=== PATIENT | male | born 1945 | race Caucasian/White ===

== ENCOUNTER 2023-12-08 19:20 | Emergency (ER) | payer OTHER, SELFPAY ==
[2023-12-08 19:24] VITALS: BP 119/71
[2023-12-08 19:27] LABS: Glucose - Point of Care 72 mg/dl (70-99)
[2023-12-08 19:35] VITALS: BMI 26.1
[2023-12-08 19:58] LABS: % Basophils 0.7 % (0-2); % Eosinophils 4.8 % (0-6); % Immature Granulocytes 0.3 % (0-0.5); % Lymphocytes 9.9 % (20.5-51.1); % Monocytes 6.1 % (1.7-9.3); % Neutrophils 78.2 % (42.2-75.2); Absolute Basophils 0.1 10^3/uL (0-0.2); Absolute Eosinophils 0.3 10^3/uL (0-0.7); Absolute Lymphocytes 0.7 10^3/uL (1.2-3.4); Absolute Monocytes 0.4 10^3/uL (0.1-0.6); Absolute Neutrophils 5.4 10^3/uL (1.4-6.5); Hematocrit 34.6 % (39.0-52.0); Hemoglobin 11.6 g/dL (13.0-18.0); Mean Corp Hgb Conc. 33.5 g/dL (33.0-37.0); Mean Corpuscular Hgb 33.5 pg (27.0-31.0); Mean Platelet Volume 9.3 fL (7.4-10.4); Nucleated Red Blood Cells % 0 % (-); Platelet Count 173 10^3/uL (130-400); Red Blood Cell Count 3.46 10^6/uL (4.70-6.10); Red Cell Dist. Width 13.2 % (11.5-14.5); White Blood Cell Count 6.9 10^3/uL (4.8-10.8)
[2023-12-08 20:13] LABS: ALT (SGPT) 19 U/L (0-50); AST (SGOT) 26 U/L (17-59); Albumin 3.9 g/dl (3.5-5.0); Alkaline Phosphatase 80 U/L (38-126); Blood Urea Nitrogen 29 mg/dl (9-20); Calcium 8.8 mg/dl (8.4-10.2); Carbon Dioxide 19 mmol/L (22-30); Chloride 109 mmol/L (98-107); Estimated Creatinine Clearance 54 ml/min; Glucose 85 mg/dl (70-99); Potassium 3.6 mmol/L (3.5-5.1); Sodium 138 mmol/L (135-145); Total Bilirubin 0.4 mg/dl (0.2-1.3); Total Protein 6.8 g/dl (6.3-8.2); eGFR > 60.00
--- NOTE | 2023-12-08 20:27 | ED.GENMED ---
History of Present Illness
General
Chief Complaint: Weakness
Source: patient
Time Seen by Provider: 12/08/23 20:02
Travel History
Have you had any contact with someone who has COVID-19?: No
Do you have any symptoms of coronavirus? Fever > 100 degrees, chills, cough, shortness of breath, sore throat, loss of taste or smell, muscle aches, or headache?: No
History of Present Illness
History of Present Illness:
77-year-old male presents to the emergency room for evaluation of weakness. Patient was doing some cooking in the kitchen and while moving from 1 room to another he began to feel dizzy. He either slipped or lost his balance and fell. He did not
hit his head. He was unable to get up. 911 was called. Patient denies feeling dizzy now. He has really no complaints at this time. Patient thought perhaps his glucose had gotten low. However his glucose was normal but Accu-Chek here. No
nausea or vomiting. Patient denies chest pain, shortness of breath.
Past History
Past History
ED Past Medical History: CAD, Cancer (Breast Right), HTN, Hypercholesterolemia, NIDDM, [place] and Other (Pneumothorax after 5 rib fractures)
ED Past Surgical History: Appendectomy, Cardiac (stent) and Other (Mastectomy right )
Social History
Tobacco: Smoker (Pipe)
Alcohol: Daily (wine 1 glass)
Drug: None
Personal:
Living: with family
Employment: Retired
Family History
Family History: Other (Noncontributory)
Phy Exam
Physical Exam
Physical Exam:
General: Awake, Alert, Oriented X3. No acute distress.
Vitals: unremarkable
Head: Atraumatic
Eyes: Pupils equal, EOMI
Throat: Airway intact, no exudates
Neck: Trachea midline
Lungs: Clear and equal b/l
Heart: Regular rate, no murmurs
Abd: Soft, Nontender, No pulsatile mass
Neuro: Nonfocal
Skin: Warm, dry, no rash
Extremities: pulses equal b/l, no edema
Course
Orders/Labs/Results
Orders:
Orders
12/08/23 19:42
EKG [Electrocardiogram (*1)] Urgent
Reason for Study: Other
Other Reason for Exam: generalizeed weakness
EKG- Treatment ONCE
12/08/23 19:50
Complete Blood Count/With Diff Urgent
Comprehensive Metabolic Panel Urgent
12/08/23 20:25
0.9% Sodium Chloride 500 ml [Nss] 500 ml IV BOLUS
Abnormal Lab Results
12/08/23
19:50
RBC 3.46 L 10^6/uL
(4.70-6.10)
Hgb 11.6 L g/dL
(13.0-18.0)
Hct 34.6 L %
(39.0-52.0)
MCV 100.0 H fL
(80.0-94.0)
MCH 33.5 H pg
(27.0-31.0)
Absolute Lymphs (auto) 0.7 L 10^3/uL
(1.2-3.4)
Neutrophils % 78.2 H %
(42.2-75.2)
Lymphocytes % 9.9 L %
(20.5-51.1)
Chloride 109 H mmol/L
(98-107)
Carbon Dioxide 19 L mmol/L
(22-30)
BUN 29 H mg/dl
(9-20)
12/08/23 19:50
12/08/23 19:50
Vital Signs
Initial and Last Documented VS:
Initial Vital Signs
Temp Pulse Resp BP Pulse Ox
97.7 F 84 19 119/71 99
12/08/23 19:24 12/08/23 19:24 12/08/23 19:24 12/08/23 19:24 12/08/23 19:24
Last Documented Vital Signs
Temp Pulse Resp BP Pulse Ox
97.7 F 84 19 119/71 99
12/08/23 19:24 12/08/23 19:24 12/08/23 19:24 12/08/23 19:24 12/08/23 19:35
MDM/Problems Addressed
Differential Diagnosis Includes:
syncope, near-syncope, contusion, dehydration, anemia
MDM/Problems Addressed:
Patient presents after falling. Patient states he felt weak and perhaps dizzy prior to the fall. No loss of consciousness. No chest pain or shortness breath. Workup reveals normal hemoglobin, normal white blood count. BUN 29 creatinine 1.2
suggesting mild prerenal azotemia. Patient feels better after 500 bolus of normal saline. Patient stable for discharge home.
*Pulse Oximetry
Patient hypoxic: no
*EKG
Interpreted by ED Provider?: Yes
Interpretation: normal
Heart Rate: 76
Rate: normal
Rhythm: sinus
Grover: normal axis
Interval: normal interval
QRS Pattern: normal QRS
Ischemia: no ischemia
*[place] Interpretation
Rate: normal
Interpretation: normal
Rhythm: sinus
*Critical Care Note
Total Time (30-74mins, 75-104mins- exclusive of procedures): Not Applicable
ED Attending Note
-
Portions of this chart may have been created with voice recognition software.� Occasional wrong word or��sound alike� substitutions may have occurred due to the inherent limitations of voice recognition software.
Discharge Plan
Departure
Patient Disposition: Home (Routine Discharge)
Date of Disposition: 12/08/23
Time of Disposition: 22:00
Patient with high blood pressure during this ER visit?: No
Condition: Good
Discharge Problem:
Acute dehydration
Instructions: Dehydration, Adult ED
Prescriptions:
No Action
lisinopril 20 MG tablet
20 mg PO HS
metformin 1,000 MG tablet
1,000 mg PO BID Qty: 30 0RF
Rx Instructions:
Resume regular dose of Metfomin on 01/11/13
carvedilol 6.25 MG tablet
6.25 mg PO BID Qty: 60 11RF
simvastatin 40 mg Tablet
40 mg PO HS
tamsulosin [Flomax] 0.4 mg capsule
0.4 mg PO HS Qty: 7 0RF
Referrals:
No Hardy DO [Family Provider] -
Interventions
Interventions:
*Risk Screen - Suicide Last Done: 12/08/23 19:24
*General Assessment Last Done: 12/08/23 19:24
*Neglect/Abuse Screening Last Done: 12/08/23 19:24
ED- Fall Risk Assessment Last Done: 12/08/23 19:35
*ED COVID-19 Vaccine History Last Done: 12/08/23 19:35
*Nursing Disposition Last Done: 12/08/23 22:10
ED- Cardiac Assessment Last Done: 12/08/23 19:35
ED- Neurological Assessment Last Done: 12/08/23 19:35
ED- Pulmonary Assessment Last Done: 12/08/23 19:35
Discharge Date and Time
Discharge Date/Time: 12/08/23 22:10
Print Language: DANISH
[2023-12-08] MEDS: NSS 500 IV (20:34)
== END 2023-12-08 22:10 | disposition home or self-care (01) ==
LOC: EMR 19:20
PROVIDERS: EMERGENCY PHYSICIAN Emergency Medicine; FAMILY PHYSICIAN Family Medicine
DX: E86.0 Dehydration (principal); W01.0XXA Fall on same level from slipping, tripping and stumbling without subsequent striking against object, initial encounter; F17.290 Nicotine dependence, other tobacco product, uncomplicated
CPT/HCPCS: 99284; 96360; 80053; 82962; 85025; 93005

== ENCOUNTER → 2024-12-01 12:48 | Outpatient (REF) | payer OTHER, SELFPAY ==
[2024-12-01 15:45] LABS: ALT (SGPT) 22 U/L (0-50); AST (SGOT) 23 U/L (17-59); Albumin 3.9 g/dl (3.5-5.0); Alkaline Phosphatase 78 U/L (38-126); Blood Urea Nitrogen 21 mg/dl (9-20); Carbon Dioxide 31 mmol/L (22-30); Chloride 104 mmol/L (98-107); Glucose 167 mg/dl (70-99); Potassium 4.1 mmol/L (3.5-5.1); Sodium 141 mmol/L (135-145); Total Bilirubin 0.8 mg/dl (0.2-1.3); Total Protein 6.7 g/dl (6.3-8.2); eGFR > 60.00
[2024-12-01 15:54] LABS: NT-proBNP 271 pg/ml
[2024-12-01 17:14] LABS: % Basophils 1.1 % (0-2); % Immature Granulocytes 0.2 % (0-0.5); % Lymphocytes 12.7 % (20.5-51.1); % Monocytes 8.4 % (1.7-9.3); % Neutrophils 69.6 % (42.2-75.2); Absolute Basophils 0.1 10^3/uL (0-0.2); Absolute Eosinophils 0.4 10^3/uL (0-0.7); Absolute Lymphocytes 0.7 10^3/uL (1.2-3.4); Absolute Monocytes 0.5 10^3/uL (0.1-0.6); Absolute Neutrophils 3.7 10^3/uL (1.4-6.5); Hematocrit 39.8 % (39.0-52.0); Hemoglobin 13.4 g/dL (13.0-18.0); Mean Corp Hgb Conc. 33.7 g/dL (33.0-37.0); Mean Corpuscular Hgb 35.4 pg (27.0-31.0); Mean Platelet Volume 10.8 fL (7.4-10.4); Nucleated Red Blood Cells % 0 % (-); Platelet Count 195 10^3/uL (130-400); Red Blood Cell Count 3.79 10^6/uL (4.70-6.10); Red Cell Dist. Width 12.4 % (11.5-14.5); White Blood Cell Count 5.4 10^3/uL (4.8-10.8)
== END ==
LOC: HWRCS 12:48
PROVIDERS: ATTENDING PHYSICIAN Family Medicine; REFERRING PHYSICIAN Nurse Practitioner Primary Care
DX: I25.10 Atherosclerotic heart disease of native coronary artery without angina pectoris (principal); J90 Pleural effusion, not elsewhere classified; E11.59 Type 2 diabetes mellitus with other circulatory complications; R11.11 Vomiting without nausea; R60.0 Localized edema
CPT/HCPCS: 36415; 71046; 80053; 83880; 85025; 93306

== ENCOUNTER 2025-02-19 04:25 | Inpatient (IN) | payer OTHER, SELFPAY ==
[2025-02-19] VITALS (14 sets, daily range): BP systolic 111–167; BP diastolic 57–92; BMI 26.9; BMI 26.3
[2025-02-19] MEDS: ZOFRAN 4 MG IV (02:20)
[2025-02-19] MEDS: MORPHINE SULFATE 4 MG IV (02:21)
[2025-02-19 02:27] LABS: % Eosinophils 9.5 % (0-6); % Immature Granulocytes 0.2 % (0-0.5); % Lymphocytes 16.6 % (20.5-51.1); % Monocytes 8.3 % (1.7-9.3); % Neutrophils 64.4 % (42.2-75.2); Absolute Basophils 0.1 10^3/uL (0-0.2); Absolute Eosinophils 0.6 10^3/uL (0-0.7); Absolute Monocytes 0.5 10^3/uL (0.1-0.6); Absolute Neutrophils 3.8 10^3/uL (1.4-6.5); Hematocrit 35.4 % (39.0-52.0); Hemoglobin 11.8 g/dL (13.0-18.0); Mean Corp Hgb Conc. 33.3 g/dL (33.0-37.0); Mean Corpuscular Hgb 35.5 pg (27.0-31.0); Mean Corpuscular Volume 106.6 fL (80.0-94.0); Nucleated Red Blood Cells % 0 % (-); Platelet Count 152 10^3/uL (130-400); Red Blood Cell Count 3.32 10^6/uL (4.70-6.10); Red Cell Dist. Width 13.3 % (11.5-14.5); White Blood Cell Count 5.9 10^3/uL (4.8-10.8)
[2025-02-19 02:44] LABS: INR 0.96; PT 13.1 Sec (11.4-14.6)
[2025-02-19 02:45] LABS: APTT 23.9 Sec (23.4-35.0)
[2025-02-19 02:57] LABS: ALT (SGPT) 25 U/L (0-50); AST (SGOT) 27 U/L (17-59); Alkaline Phosphatase 79 U/L (38-126); Blood Urea Nitrogen 45 mg/dl (9-20); Calcium 8.8 mg/dl (8.4-10.2); Carbon Dioxide 28 mmol/L (22-30); Chloride 106 mmol/L (98-107); Estimated Creatinine Clearance 45 ml/min; Glucose 223 mg/dl (70-99); Potassium 4.2 mmol/L (3.5-5.1); Sodium 142 mmol/L (135-145); Total Bilirubin 0.6 mg/dl (0.2-1.3); Total Protein 6.6 g/dl (6.3-8.2); eGFR 50.81
--- NOTE | 2025-02-19 03:28 | ED.GENMED ---
History of Present Illness
General
Chief Complaint: Fall
Source: patient
Exam Limitations: none
Time Seen by Provider: 02/19/25 02:13
History of Present Illness
History of Present Illness:
Note:
CHIEF COMPLAINT(S)
Left hip pain and suspected fracture after a fall.
HISTORY OF PRESENT ILLNESS
The patient is an 79-year-old male who presents with left hip pain following a fall. He reports that he fell after tripping on the floor near a mini fridge in his living room. The patients suggested to EMS that his leg is broken. He denies
head trauma or loss of consciousness at the time of fall. He also denies recent intake of alcoholic beverages prior to the fall. His last known blood pressure reading was 176/99 mmHg.
The patient indicates he has been experiencing stomach discomfort and has been unable to eat for the past three days. He mentions visiting a doctor for stomach issues and was prescribed medication for it. More recently, he had resumed eating.
- Nursing notes reviewed and vital signs reviewed.
- The patient exhibits tenderness in the left hip region. Upon inspection, the left limb appears shortened and externally rotated, suggestive of a possible fracture.
- No pain is noted when moving the toes, indicating they are likely not injured.
- Ankle examination reveals tenderness on the right side.
PLAN
- Order an X-ray to evaluate the suspected left hip fracture.
- Administer analgesics to manage pain.
- Discuss with orthopedic consultation following imaging results.
DIFFERENTIAL DIAGNOSIS
The Differential Diagnosis includes, in no particular order and is not limited to:
- Hip fracture
- Hip dislocation
- Contusion
- Lumbar spine injury
- Pelvic fracture
- Soft tissue injury
- Muscle strain
- Osteoarthritis exacerbation
- Peripheral neuropathy
- Vascular compromise
Past History
Past History
ED Past Medical History: CAD, Cancer (Breast Right), HTN, Hypercholesterolemia, NIDDM, [place] and Other (Pneumothorax after 5 rib fractures)
ED Past Surgical History: Appendectomy, Cardiac (stent) and Other (Mastectomy right )
Social History
Tobacco: Smoker (Pipe)
Alcohol: Daily (wine 1 glass)
Drug: None
Personal:
Living: with family
Employment: Retired
Family History
Family History: Other (Noncontributory)
Phy Exam
General Physical Exam
General Presentation: moderate distress
General age: appears stated age
General Skin: warm and dry
General Habitus: normal and elderly
General Mental: alert
General Hydration: appears well hydrated
ENT Exam
ENT Exam: EOMI, pharynx normal, neck supple and normocephalic
Eye Exam
Eye Exam: PERRL, cornea clear and conjunctiva normal
Cardiovascular Exam
Cardiovascular Exam: regular rate/rhythm, no edema, no murmur and normal peripheral pulses
Pulmonary Exam
Pulmonary Exam: lungs clear, no respiratory distress, no rales, no crackles, no rhonchi, no stridor, no wheezing and no cough
Gastrointestinal Exam
Gastrointestinal Exam: normal bowel sounds, non tender, soft, no organomegaly, no pulsatile mass and non distended
Neurological Exam
Neurological Exam: alert, oriented x3, no motor deficits and speech normal
Musculoskeletal Exam
Musculoskeletal Exam: joint swelling, neuro vasc intact and other (Left hip tenderness to palpation)
Skin Exam
Skin Exam: normal color, warm/dry, no rash and no petechia
Psychiatric Exam
Psychiatric Exam: normal mood/affect
Course
Orders/Labs/Results
Orders:
Orders
02/19/25 02:13
Urinalysis Reflex To Culture Urgent
CR Hip - LT w/wo Pel 2-3 Vw* Urgent
Comment:
Reason For Exam: fall with hip deformity
Include a pelvis x-ray?: Yes
02/19/25 02:17
Complete Blood Count/With Diff Urgent
Comprehensive Metabolic Panel Urgent
PTT Urgent
Prothrombin Time Urgent
02/19/25 02:20
Morphine Sulfate 4 mg .ROUTE .STK-MED ONE
Ondansetron Injectable [Zofran] 4 mg .ROUTE .STK-MED ONE
Ondansetron Injectable [Zofran] 4 mg IV NOW STA
02/19/25 02:21
Morphine Sulfate 4 mg IV NOW STA
02/19/25 Breakfast
NPO
Allow oral meds: Yes
Allow clear liquids: Sips of Clears
NPO with Ice Chips: Yes
Abnormal Lab Results
02/19/25
02:17
RBC 3.32 L 10^6/uL
(4.70-6.10)
Hgb 11.8 L g/dL
(13.0-18.0)
Hct 35.4 L %
(39.0-52.0)
MCV 106.6 H fL
(80.0-94.0)
MCH 35.5 H pg
(27.0-31.0)
Absolute Lymphs (auto) 1.0 L 10^3/uL
(1.2-3.4)
Lymphocytes % 16.6 L %
(20.5-51.1)
Eosinophils % 9.5 H %
(0-6)
BUN 45 H mg/dl
(9-20)
Creatinine 1.4 H mg/dL
(0.7-1.3)
Glucose 223 H mg/dl
(70-99)
02/19/25 02:17
02/19/25 02:17
Vital Signs
Initial and Last Documented VS:
Initial Vital Signs
Temp Pulse Resp BP Pulse Ox
97.8 F 77 18 167/92 94
02/19/25 02:05 02/19/25 02:05 02/19/25 02:05 02/19/25 02:05 02/19/25 02:05
Last Documented Vital Signs
Temp Pulse Resp BP Pulse Ox
97.8 F 78 15 147/87 94
02/19/25 02:05 02/19/25 03:15 02/19/25 03:15 02/19/25 03:12 02/19/25 03:30
*Pulse Oximetry
SaO2: 94
Oxygen Mode of Delivery: Room air
*Critical Care Note
Total Time (30-74mins, 75-104mins- exclusive of procedures): Not Applicable
Update Note
Update Note:
DISPOSITION
Patient to be admitted to the hospitalist service.
ASSESSMENT
Proximal femur fracture, non-displaced.
EMERGENCY TREATMENTS ADMINISTERED
Analgesics administered for pain control.
MANAGEMENT OF THE PATIENTS CARE WAS DISCUSSED WITH
Orthopedic consultation to follow imaging results.
PLAN
Admit the patient for further management, consult ortho for fracture evaluation and management.
INDEPENDENT REVIEW OF LABS AND INTERPRETATION OF TESTS
- My independent interpretation of the X-ray is a proximal femur fracture, non-displaced.
MEDICATION RECONCILIATION
Analgesics were administered in the emergency department for pain management.
MEDICAL DECISION MAKING
1. Number & Complexity of Problems
2. Data Reviewed: X-ray was ordered, reviewed, and interpreted for determining the non-displaced proximal femur fracture.
3. Risk: Consideration of admission was made due to the complexity and risk associated with the proximal femur fracture. Inpatient management is appropriate.
PATHOLOGIES TO CONSIDER
- Hip fracture
- Vascular compromise due to fracture complicating pre-existing conditions.
Orthopedic surgery notified via [place] text
ED Attending Note
-
Portions of this chart may have been created with voice recognition software.� Occasional wrong word or��sound alike� substitutions may have occurred due to the inherent limitations of voice recognition software.
Discharge Plan
Departure
Patient Disposition: Admit
Date of Disposition: 02/19/25
Time of Disposition: 03:46
Admit to: Telemetry
Presentation/result/management discussed w/ accepting MD/DO: Hospitalist
Discharge Problem:
Closed fracture of left hip
Prescriptions:
No Action
lisinopril 20 MG tablet
20 mg PO HS
metformin 1,000 MG tablet
1,000 mg PO BID Qty: 30 0RF
Rx Instructions:
Resume regular dose of Metfomin on 01/11/13
carvedilol 6.25 MG tablet
6.25 mg PO BID Qty: 60 11RF
simvastatin 40 mg Tablet
40 mg PO HS
tamsulosin [Flomax] 0.4 mg capsule
0.4 mg PO HS Qty: 7 0RF
Referrals:
No Hardy DO [Family Provider, Family Practice]
Interventions
Interventions:
*Risk Screen - Suicide Last Done: 02/19/25 02:10
*General Assessment Last Done: 02/19/25 02:10
*Neglect/Abuse Screening Last Done: 02/19/25 02:10
*ED- Fall Risk Assessment Last Done: 02/19/25 02:10
*ED COVID-19 Vaccine History Last Done: 02/19/25 02:10
ED-Musculoskeletal Assessment Last Done: 02/19/25 02:15
ED- Neurological Assessment Last Done: 02/19/25 02:15
ED-Skin Assessment Last Done: 02/19/25 02:15
Discharge Date and Time
Print Language: MOSOTHO
--- NOTE | 2025-02-19 03:53 | HPS.HSE ---
Family Physician
-
Family Physician: No Hardy
Chief Complaint
-
Mechanical fall
History of Present Illness
This is a 79-year-old male with past medical history of CAD status post stenting, hypertension, hyperlipidemia, BPH, [id number] diabetes s who presents to the emergency department following a mechanical fall at home and found to have a
left femoral fracture.
Patient apparently was walking in the middle of the night when he tripped and fell on his left side. He denied hitting his head. He is not on any blood thinners and denies taking any aspirin or NSAIDs currently. He reported having significant
pain and was immediately was unable to ambulate due to the pain. Spouse was at his bedside and called EMS and patient was brought to the emergency department.
In the emergency department the patient was afebrile, blood pressure was 150/80 with a pulse of 78 and satting 94% on room air.
CBC was unremarkable.
Electrolytes were normal and BUN/creatinine were slightly elevated at 45 and 1.4 with a glucose of 223. His INR was normal at 0.96. LFTs were normal.
X-ray of the hip shows a minimally displaced left proximal femur fracture
Medical History
Past Medical History
Past Medical History: Reports CAD (CAD status post 1 stent 10 years ago), Cancer (Breast cancer status post resection), HTN, NIDDM and Other (BPH)
Past Surgical History: Reports Appendectomy, Orthopedic (Right shoulder surgical repair with pins status post removal) and Other (Breast resection (left))
Social History
Tobacco: Non-smoker
Alcohol: Daily
Drug: None
Personal:
Living: With Family
Employment: Retired
Family History
Family History: Not pertinent
Allergies / Home Medications
Allergies reflects when Allergies were last updated in [facility].
Home Medications with original date entered in [facility]
Allergy/Medication List:
Allergies
Allergy/AdvReac Type Severity Reaction Status Date / Time
fluticasone (From Flonase) Allergy FACIAL Verified 03/19/23 19:37
SWELLING
losartan Allergy Unknown Verified 03/19/23 19:37
lovastatin Allergy Unknown Verified 03/19/23 19:37
salmeterol (From Advair Allergy SEE BELOW Verified 03/19/23 19:37
Diskus)
Home Medications
lisinopril 20 mg tablet 20 mg PO HS 12/10/12
simvastatin 40 mg tablet 40 mg PO HS 03/12/22
tamsulosin 0.4 mg capsule (Flomax) 0.4 mg PO HS Urinary issue #7 caps 03/20/23
Finasteride 5 mg tablet, 5 mg p.o. daily
Glipizide 5 mg tablet, 5 mg p.o. daily
Review of Systems
-
Constitutional: Reports No Symptoms
EENT: Reports No Symptoms
Respiratory: Reports No Symptoms
Cardiac: Reports No Symptoms
Abdomen/GI: Reports No Symptoms
: Reports No Symptoms
Musculoskeletal: Reports Joint Pain
Skin: Reports No Symptoms
Neurological: Reports No Symptoms
Endocrine: Reports No Symptoms
Hematologic/Lymphatic: Reports No Symptoms
Psych: Reports No Symptoms
Physical Exam
Vital Signs
Vital Signs
Temp Pulse Resp BP Pulse Ox
97.8 F 78 15 147/87 94
02/19/25 02:05 02/19/25 03:15 02/19/25 03:15 02/19/25 03:12 02/19/25 03:30
Physical Exam
General: Well Developed, Well Nourished and No Apparent Distress
HEENT: NormoCephalic, Moist mucous membranes and Atraumatic
Respiratory: Clear
Cardiac: S1/S2 and Regular Rhythm; No Murmur or Rub
GI: Soft, Non Tender, Non Distended and Normal Bowel Sounds; No Organomegaly
Rectal: Deferred by Provider
Musculoskeletal: No Clubbing, No Cyanosis, No Edema and Other (Reduced range of motion of the left hip secondary to pain, no limb length asymmetry)
Skin: No Rash
Neuro: Nonfocal/grossly intact
Psych: Calm
Laboratory Results
-
02/19/25 02:17
02/19/25 02:17
Laboratory Results
PT 13.1 Sec (11.4-14.6) 02/19/25 02:17
INR 0.96 02/19/25 02:17
APTT 23.9 Sec (23.4-35.0) 02/19/25 02:17
Total Bilirubin 0.6 mg/dl (0.2-1.3) 02/19/25 02:17
AST 27 U/L (17-59) 02/19/25 02:17
ALT 25 U/L (0-50) 02/19/25 02:17
Alkaline Phosphatase 79 U/L (38-126) 02/19/25 02:17
Data Reviewed
-
Diagnostic Radiology: Image Personally Visualized and interpreted
Lab Data: Labs Reviewed by me
Old Records: Reviewed
Impression/Plan
-
IMPRESSION:
79-year-old with history of known insulin-dependent diabetes, hypertension, CAD status post stenting over 10 years ago who presents to the emergency department following a mechanical fall at home. He tripped and fell on his left side and suffered a
left proximal femur fracture that appears to be minimally displaced on x-ray. There was no head trauma. There was no loss of consciousness. He is not on any thinners or antiplatelet agents. He is hemodynamically stable afebrile and otherwise
well-appearing except for significant hip pain.
PLAN:
Femur fracture -left proximal femur fracture with and minimal displacement
- Admit to MedSurg
- N.p.o. for now
- IV fluids
- Pain control
- Hold any for enhancement and surgery/evaluation by Ortho
- PT OT consult
- Orthopedic consult
DM 2
- While n.p.o., sliding scale insulin every 6 hours
Hypertension
- Hold lisinopril for now
LAURIE -compared to recent baseline creatinine up to 1.4, consistent with LAURIE
- Hold lisinopril
- Gentle hydration for now
- Can restart lisinopril after resolution of LAURIE,
CAD -remote stenting
- Continue statin
DVT prophylaxis -holding on any anticoagulation pending surgery
CODE STATUS�full code
[2025-02-19] MEDS: MORPHINE SULFATE 2 MG IV (04:28)
[2025-02-19] MEDS: LR 1000 IV (05:01)
[2025-02-19 05:30] LABS: Urine Albumin 2+ (Neg - Trace); Urine Bilirubin Negative (Negative); Urine Character Clear (Clear); Urine Color Yellow; Urine Glucose 3+ (Negative); Urine Ketone 2+ (Negative); Urine Leukocyte Negative (Negative); Urine Nitrite Negative (Negative); Urine Occult Blood Negative (Negative); Urine Specific Gravity 1.015 (<1.030); Urine Urobilinogen 1+ (Neg - 1+)
[2025-02-19 05:50] LABS: Urine Bacteria Few (Negative); Urine Red Blood Cell None Seen /HPF (0-2); Urine White Cell 0-2 /HPF (0-5)
--- NOTE | 2025-02-19 05:51 | W.PN.UPDATE ---
Update Note
Progress Note Update
full h and p to follow
79M left displaced intertrochanteric femur fx
planned for CMN left hip w/ Dr. Atwood
NPO
ABX OCTOR
Consent on file
[2025-02-19 05:57] LABS: Glucose - Point of Care 233 mg/dl (70-99)
[2025-02-19] MEDS: NOVOLOG FLEXPEN-LOW RESISTANCE 2 UNITS SC (07:03)
--- NOTE | 2025-02-19 08:22 | W.PN.HOSP.TC ---
Addendum entered and electronically signed by Chris Oneill MD 02/19/25 16:45:
1. Left hip fracture, mechanical fall -left intertrochanteric femur fracture on x-ray. Orthopedic surgery planning to take to the OR today for surgical fixation. Resumption of diet and home medication post surghery
2. LAURIE -history of BPH and urinary retention needs to be ruled out, bladder scan to be checked once patient is out of the OR. Hold lisinopril. Blood pressure stable. No contrast imaging this admit. repeat blood work for evening
3. Acute encephalopathy -reported episodes of confusion per spouse. CT head ordered although patient declined, will need to discuss if having problematic finding. Check COVID/TSH/B12. Hold narcotic medication as possible.
4. Pbu-qmqfslp-onynjlqbz diabetes mellitus -maintained on home dose of metformin and insulin sliding scale
5. Essential hypertension -continue home Coreg for now. Blood pressure somewhat uncontrolled and as needed hydralazine for systolic blood pressure greater than 160
Full code
Original Note:
Today's Communication/Plan
-
Cephalomedullary nail fixation of the intertrochanteric fracture of femur
Continue IV fluids
CT head
Assessment / Plan
Assessment / Plan
IMPRESSION:
79-year-old with history of known insulin-dependent diabetes, hypertension, CAD status post stenting over 10 years ago who presents to the emergency department following a mechanical fall at home.
PLAN:
#Intertrochanteric fracture left femur
Ortho consulted
Plan on cephalomedullary nail fixation
NPO
IV fluids
Adequate pain control�morphine, oxycodone as needed
#Altered mental status
Patient's mentioned that he is not at baseline
During my evaluation patient is AAO X3
Patient had a mechanical fall, but does not report any head strike
No loss of consciousness after the fall
Will check CT head
Will check TSH, B12, COVID
#Episode of coughing
Speech evaluation
Will put in diet order as per recommendation
#LAURIE
Baseline creatinine 1.0
Elevated at presentation 1.4
Likely prerenal due to dehydration, patient has not been feeding well in the past 3 days
Will check bladder scan
Continue IV fluids for now
Hold lisinopril
Trend BMP
#DM2
Continue SSI
#Hypertension
Lisinopril on hold
#CAD
Continue statin
CODE STATUS�full code
Anticipated Discharge: 24 - 48 hours
Subjective/Interval History
-
Date of Service: February 19, 2025
Patient reports pain in the left hip. Reports he did not have a bowel movement since 3 days.
Objective Data
-
Labs:
Laboratory Results
02/19/25
02:17
WBC 5.9
Hgb 11.8 L
Hct 35.4 L
Plt Count 152
PT 13.1
INR 0.96
APTT 23.9
Sodium 142
Potassium 4.2
Chloride 106
Carbon Dioxide 28
BUN 45 H
Creatinine 1.4 H
Glucose 223 H
Calcium 8.8
Total Bilirubin 0.6
AST 27
ALT 25
Alkaline Phosphatase 79
Vital Signs:
Vital Signs
Temp Pulse Resp BP Pulse Ox
98.0 F 73 16 159/84 99
02/19/25 07:42 02/19/25 07:42 02/19/25 07:42 02/19/25 07:42 02/19/25 07:42
I&O
02/18/25 02/19/25 02/20/25
06:59 06:59 06:59
Intake Total 160 / 160
Output Total 150 / 150
Balance
Review of Systems
-
All other systems: Reviewed and negative (Except as mentioned above)
Physical Exam
-
General: Well Developed and Well Nourished
HEENT: Normocephalic and Atraumatic
Respiratory: Clear to Auscultation
Cardiac: Regular Rhythm and S1/S2
GI: Soft, Nontender, Normal Bowel Sounds and Distended
Musculoskeletal: Other (Left lower extremity-shortened and externally rotated. Palpable femoral pulses, palpable dorsalis pedis pulse. Neurovasculature intact.)
Skin: Warm and Dry
Neuro: Awake, Alert, Oriented and AO x 3
Psych: Calm
[2025-02-19] MEDS: TYLENOL 650 MG PO (08:24)
[2025-02-19] MEDS: PROSCAR 5 MG PO (08:24)
--- NOTE | 2025-02-19 11:45 | CM ---
Addendum entered by Fidencio Warner 02/19/25 14:32:
CM spoke to [facility] accelerator systems director and she confirmed that pt is accepted for admission on Saturday if medically stable and SNF level of cafe recommended. Pt will go to 4th floor. Pt will need an auth.
[facility]
Accepting physician: Letty Craig
[facility] nursing report: [phone] and ask for nursing supervisor floor assembly
Discharge instructions fax: [phone]
PT and OT will evaluate the pt tomorrow 02/20/25
Original Note:
CM following re: discharge planning.
Reviewed pt's chart, met with pt.
Pt is an 79 year old male, admitted with primary dx of Femur fracture -left proximal femur fracture with and minimal displacement. OR today.
Pt reports he was born and raised in [place], immig[place] to [place] at the age of 27 when his and resided in [facility]. Pt reports he lives with spouse 2SH, 2 steps to enter, has 4 supportive children. Pt reports he uses a cane for
safe ambulation. No VN or SNF history. Pt reports he might need to go to a SNF for a short term rehab after surgery and pt requested [facility].
PT and OT will evaluate the pt after surgery to determine a level of care at discharge.
PCP: No Hardy
Pharmacy: [facility]
D/C plan: most likely [facility] SNF if recommended by PT/OT.
CM will follow with discharge plan updates as hospitalization progresses
[2025-02-19 12:06] LABS: Glucose - Point of Care 190 mg/dl (70-99)
[2025-02-19] MEDS: NOVOLOG FLEXPEN-LOW RESISTANCE 1 UNITS SC (12:42)
[2025-02-19] MEDS: TYLENOL PO ×2 (12:45→15:17)
--- NOTE | 2025-02-19 13:27 | PTCARENOTE ---
pt refusing head CT at this time due to not wanting to be moved.
[2025-02-19 17:52] LABS: Glucose - Point of Care 176 mg/dl (70-99)
--- NOTE | 2025-02-19 18:00 | W.IMMPOSTOP ---
Surgical Immed Post Op Note
-
Primary Surgeon: Rafa Atwood MD
Assisting Surgeon:
Pre-op Diagnosis: left hip intertrochanteric femur fracture
Post-op Diagnosis: left hip intertrochanteric femur fracture
Procedure Performed: left proximal femur intramedullary fixation
Anesthesia Type: spinal with general
Specimen / Cultures: none
Estimated Blood Loss: 50mL
Complications: none apparent
Implants: Hernandez Gamma 4 [id number] 125 degree intramedullary nail; 10.9n825hg lag screw; 5x40mm distal locking screw
Operative Findings: intertrochanteric proximal femur fracture
Operative dictation #: [id number]
[2025-02-19 20:08] LABS: Glucose - Point of Care 296 mg/dl (70-99)
[2025-02-19] MEDS: NOVOLOG FLEXPEN-LOW RESISTANCE 3 UNITS SC (20:08)
[2025-02-19] MEDS: COLACE 100 MG PO (20:10)
[2025-02-19] MEDS: COREG 6.25 MG PO (20:10)
[2025-02-19] MEDS: SENOKOT 17.2 MG PO (20:10)
[2025-02-19] MEDS: FLOMAX 0.4 MG PO (21:00)
[2025-02-19] MEDS: LIPITOR 20 MG PO (21:00)
[2025-02-19] MEDS: ROXICODONE 5 MG PO (21:00)
--- NOTE | 2025-02-19 21:22 | CON.ORTHO ---
Consultation
-
Date/Time Consultation Requested: 02/19/2025 0453
Date/Time Consultation Performed: 02/19/2025 0800
Requesting Provider: Dr. Otoniel Finn
Performing Provider: GERMAN Tejeda, Dr. Rafa Atwood
Reason for Consultation: left hip fracture
Consultation - Orthopedics
History
79-year-old male admitted to us on hospital secondary to mechanical fall in his home and is going for a drink. He reports impact of his left side and difficulty with bearing weight afterward. He denies any prodromal pain and presently denies any
paresthesias but does report significant discomfort about the left hip
Allergies / Home Medications
Past Medical History: Reports CAD (CAD status post 1 stent 10 years ago), Cancer (Breast cancer status post resection), HTN, NIDDM and Other (BPH)
Past Surgical History: Reports Appendectomy, Orthopedic (Right shoulder surgical repair with pins status post removal) and Other (Breast resection (left))
Social History
Tobacco: Non-smoker
Alcohol: Daily
Drug: None
Personal:
Living: With Family
Employment: Retired
Family History
Family History: Not pertinent
Allergies / Home Medications
12 point ROS neg other than per hpi
Allergy/AdvReac Type Severity Reaction Status Date / Time
fluticasone (From Flonase) Allergy FACIAL Verified 03/19/23 19:37
SWELLING
losartan Allergy Unknown Verified 03/19/23 19:37
lovastatin Allergy Unknown Verified 03/19/23 19:37
salmeterol (From Advair Allergy SEE BELOW Verified 03/19/23 19:37
Diskus)
�Medication �Instructions �Recorded
lisinopril 20 mg tablet 20 mg PO HS 12/10/12
carvedilol 6.25 mg tablet 6.25 mg PO BID ##60 01/09/13
metformin 1,000 mg tablet 1,000 mg PO BID ##30 01/09/13
simvastatin 40 mg tablet 40 mg PO HS 03/12/22
tamsulosin 0.4 mg capsule (Flomax) 0.4 mg PO HS Urinary issue #7 caps 03/20/23
Vital Signs / Lab Results
Temp Pulse Resp BP Pulse Ox
98.2 F 85 16 148/84 96
02/19/25 18:26 02/19/25 20:10 02/19/25 18:45 02/19/25 20:10 02/19/25 20:00
PHYSICAL EXAM:
General: Patient is well-nourished well-developed no acute distress conscious alert and oriented.
MSK: Focused examination of the left lower extremity shows skin is intact about the left hip. He has pain with logroll motion. He reports distal sensation intact and demonstrates motor function intact L3-S1
IMAGING: There is a mildly displaced complete intertrochanteric femur fracture of the left hip.
02/19/25 02:17
Assessment / Plan
79-year-old male admitted to [facility] secondary to a mechanical fall and impact of his left hip with clinical exam consistent with radiographic findings of displaced intertrochanteric femur fracture. Imaging was shown and reviewed with
the patient. Patient is recommended for operative management given his baseline community ambulator status without significant assist devices and overall health. We reviewed consideration of nonoperative management. The condition/injury and
respective operative and non-operative interventions were reviewed with the patient to include the risks, benefits, rehabilitation, and prognosis for each. The treatment/operative technique, follow-up, rehabilitation, and prognosis were reviewed
with the patient. Surgical risks were discussed which include but not limited to infection, blood loss, CRPS, possible need for further surgeries, damage to local structures, and possible loss of life or limb. After thorough counseling and answering
all questions, the patient wished to proceed with operative intervention of left hip reduction and cephalomedullary nail fixation with Dr. Atwood. The patient verified understanding of the treatment plan and all questions were answered to
satisfaction.
N.p.o.
Nonweightbearing to left lower extremity
Antibiotics on-call to operating room
Consent obtained and placed on file
[2025-02-19 21:34] LABS: Glucose - Point of Care 338 mg/dl (70-99)
[2025-02-19 21:46] LABS: COVID-19 Antigen Negative (Negative)
[2025-02-20] VITALS (7 sets, daily range): BP systolic 99–135; BP diastolic 57–78; O2SAT 95
[2025-02-20 00:15] LABS: Glucose - Point of Care 310 mg/dl (70-99)
[2025-02-20] MEDS: NOVOLOG FLEXPEN-LOW RESISTANCE SC (00:50)
[2025-02-20] MEDS: NOVOLOG FLEXPEN 4 UNITS SC ×2 (00:50→22:30)
[2025-02-20 06:08] LABS: Hematocrit 29.4 % (39.0-52.0); Mean Corpuscular Hgb 35.3 pg (27.0-31.0); Mean Corpuscular Volume 103.9 fL (80.0-94.0); Mean Platelet Volume 10.5 fL (7.4-10.4); Platelet Count 134 10^3/uL (130-400); Red Blood Cell Count 2.83 10^6/uL (4.70-6.10); Red Cell Dist. Width 13.3 % (11.5-14.5); White Blood Cell Count 7.1 10^3/uL (4.8-10.8)
[2025-02-20 06:40] LABS: ALT (SGPT) 26 U/L (0-50); AST (SGOT) 24 U/L (17-59); Albumin 3.2 g/dl (3.5-5.0); Alkaline Phosphatase 61 U/L (38-126); Blood Urea Nitrogen 35 mg/dl (9-20); Calcium 8.4 mg/dl (8.4-10.2); Carbon Dioxide 27 mmol/L (22-30); Chloride 104 mmol/L (98-107); Estimated Creatinine Clearance 68 ml/min; Glucose 292 mg/dl (70-99); Potassium 4.4 mmol/L (3.5-5.1); Sodium 136 mmol/L (135-145); Total Bilirubin 0.8 mg/dl (0.2-1.3); Total Protein 5.5 g/dl (6.3-8.2); eGFR > 60.00
[2025-02-20 07:12] LABS: TSH 0.13 uIU/ml (0.47-4.68)
[2025-02-20 07:31] LABS: Vitamin B12 516 pg/ml (239-931)
[2025-02-20 07:46] LABS: Glucose - Point of Care 288 mg/dl (70-99)
[2025-02-20] MEDS: NOVOLOG FLEXPEN-LOW RESISTANCE 3 UNITS SC ×3 (07:58→17:30)
[2025-02-20] MEDS: ANCEF 5 IV ×2 (07:59)
[2025-02-20] MEDS: SENOKOT 17.2 MG PO ×2 (08:00→20:41)
[2025-02-20] MEDS: COLACE 100 MG PO ×2 (08:00→20:41)
[2025-02-20] MEDS: FEOSOL 325 MG PO (08:01)
[2025-02-20] MEDS: PROSCAR 5 MG PO (08:01)
[2025-02-20] MEDS: LOVENOX 30 MG SC ×2 (08:01→20:42)
[2025-02-20] MEDS: COREG 6.25 MG PO ×2 (08:02→20:42)
--- NOTE | 2025-02-20 08:05 | W.PN.ORTHO ---
Today's Communication / Plan
-
Appreciate the primary team, continue Tx
Dispo likely SNF, ?[facility]?, appreciate CM
Continue WBAT LLE on walker
PT/OT
Dressing change prn, for now leave in place as drainage contained
Lovenox for DVT ppx until D/c, then D/c out on ASA
Pain control, ice/elevate
Jennyfer out 2 weeks post-op, either SNF or office
If jennyfer out at [facility] outpatient Ortho follow-up in [address] Atwood
Will follow
Assessment
.
Distal Motor Intact: Yes
Dressing:
Clean, dry and intact. Mild strikethrough, contained
Assessment:
POD#1 Left hip gamma nail
Overall doing/feeling well
Calf soft, nontender
Plan
.
Surgery / Date: Left hip Gamma/February 24
DVT Prophylaxis: Lovenox and Other (until D/c, then D/c out on ASA)
Activity:
Out of bed. WBAT LLE on walker
PT/OT
Discharge Plan: SNF (appreciate CM. [facility]?)
Subjective
.
.:
Patient resting comfortably this morning. No significant pain
Vital Signs and Labs
.
Vital Signs and Labs:
Lab Results
02/20/25 05:34
02/20/25 05:34
Temp Pulse Resp BP Pulse Ox
97.7 F 79 18 116/65 95
02/20/25 03:12 02/20/25 03:12 02/20/25 03:12 02/20/25 03:12 02/20/25 03:12
PT 13.1 Sec (11.4-14.6) 02/19/25 02:17
INR 0.96 02/19/25 02:17
--- NOTE | 2025-02-20 09:29 | W.PN.HOSP.TC ---
Today's Communication/Plan
-
PT/OT/speech
Bowel regimen
for SNF Saturday
Assessment / Plan
Assessment / Plan
pt is an 79 year old male
mechanical fall with sustained Intertrochanteric fracture left femur --apprec ortho--s/p repair with nail fixation--PT/OT/pain control--bowel regimen--for SNF Saturday
Altered mental status--Patient's mentioned that he was not at baseline--seems appropriate to me--hold off on head CT--TSH 0.13, B12 WNL--Covid neg
Episode of coughing--speech to follow up
LAURIE--likely due to prerenal dehydration--resolved--restart lisinopril
DM2--Continue SSI--restart metformin
Essential Hypertension--Lisinopril on hold
CAD--Continue statin
DVT proph
code status--FULL CODE
Anticipated Discharge: Within 24 hours
Subjective/Interval History
-
Date of Service: February 20, 2025
pt has not had BM yet
Objective Data
-
Labs:
Laboratory Results
02/19/25 02/20/25
22:00 05:34
WBC 7.1
Hgb 10.0 L
Hct 29.4 L
Plt Count 134
Sodium Cancelled 136
Potassium Cancelled 4.4
Chloride Cancelled 104
Carbon Dioxide Cancelled 27
BUN Cancelled 35 H
Creatinine Cancelled 0.9
Glucose Cancelled 292 H
Calcium Cancelled 8.4
Total Bilirubin 0.8
AST 24
ALT 26
Alkaline Phosphatase 61
Vital Signs:
max temp for 24 hours
02/19/25
18:26
Temp 98.2 F
Vital Signs
Temp Pulse Resp BP Pulse Ox
98.1 F 73 18 120/78 96
02/20/25 07:35 02/20/25 08:02 02/20/25 07:35 02/20/25 08:02 02/20/25 07:35
I&O
02/19/25 02/20/25 02/21/25
06:59 06:59 06:59
Intake Total 160 / 160 200 / 200 600 / 600
Output Total 150 / 150 1400 / 1400 350 / 350
Balance 10 10 -1200 / -1200 250 / 250
Review of Systems
-
All other systems: Reviewed and negative
Physical Exam
-
General: Well Developed, Well Nourished and No Apparent Distress
HEENT: Normocephalic and Atraumatic
Respiratory: Clear to Auscultation; Negative Wheezes or Crackles
Cardiac: Regular Rhythm and S1/S2
GI: Soft, Nontender, Nondistended and Normal Bowel Sounds
Musculoskeletal: No Clubbing, No Cyanosis and No Edema
Neuro: Awake
[2025-02-20] MEDS: MIRALAX 17 GRAMS PO (09:51)
--- NOTE | 2025-02-20 10:33 | PTOTSP ---
Speech therapy
Presentation: Patient was oriented and participatory. Patient speaks Botswanan and Greek fluenty. Patient denied any communicative deficits.
Swallowing function: Patient was observed with his meal tray (regular consistency solids and thin liquids via cup) in which patient appeared to tolerate as he did not exhibit any overt clinical s/sx of aspiration or difficulty with mastication/
manipulation. Patient denied dysphagia complaints. Per RN, patient tolerated medications whole with thin liquids.
Recommendations:
1) Continuation of regular consistency solids and thin liquids
2) Standard aspiration precautions
3) Medications as tolerated
Plan: No further CLINICAL PRODUCT MANAGER intervention is indicated at this time; CLINICAL PRODUCT MANAGER will sign off.
[2025-02-20] MEDS: MORPHINE SULFATE 1 MG IV (10:56)
[2025-02-20 12:13] LABS: Glucose - Point of Care 274 mg/dl (70-99)
[2025-02-20 17:29] LABS: Glucose - Point of Care 294 mg/dl (70-99)
[2025-02-20] MEDS: MORPHINE SULFATE 2 MG IV (21:00)
[2025-02-20] MEDS: FLOMAX 0.4 MG PO (21:03)
[2025-02-20] MEDS: LIPITOR 20 MG PO (21:03)
[2025-02-20 21:43] LABS: Glucose - Point of Care 334 mg/dl (70-99)
[2025-02-20] MEDS: MELATONIN 5 MG PO (22:38)
[2025-02-21 00:26] LABS: Glucose - Point of Care 254 mg/dl (70-99)
[2025-02-21 04:58] LABS: Hematocrit 25.4 % (39.0-52.0); Hemoglobin 8.7 g/dL (13.0-18.0); Mean Corp Hgb Conc. 34.3 g/dL (33.0-37.0); Mean Platelet Volume 10.5 fL (7.4-10.4); Platelet Count 127 10^3/uL (130-400); Red Blood Cell Count 2.42 10^6/uL (4.70-6.10); Red Cell Dist. Width 13.2 % (11.5-14.5); White Blood Cell Count 6.6 10^3/uL (4.8-10.8)
[2025-02-21 05:25] LABS: Blood Urea Nitrogen 40 mg/dl (9-20); Calcium 8.3 mg/dl (8.4-10.2); Carbon Dioxide 26 mmol/L (22-30); Chloride 105 mmol/L (98-107); Estimated Creatinine Clearance 55 ml/min; Glucose 233 mg/dl (70-99); Magnesium 1.9 mg/dl (1.6-2.3); Potassium 4.1 mmol/L (3.5-5.1); Sodium 135 mmol/L (135-145); eGFR > 60.00
[2025-02-21] MEDS: LIDOCAINE 4% PATCH 1 PATCH TOPICAL (05:48)
[2025-02-21 07:00] VITALS: BP 122/77
[2025-02-21 07:37] LABS: Glucose - Point of Care 231 mg/dl (70-99)
--- NOTE | 2025-02-21 07:42 | W.PN.ORTHO ---
Today's Communication / Plan
-
Appreciate the primary team, continue Tx
Dispo likely SNF, ?[facility]?, appreciate CM
Continue WBAT LLE on walker
PT/OT
Dressing change prn, for now leave in place as drainage contained
Lovenox for DVT ppx until D/c, then D/c out on ASA
Pain control, ice/elevate
Jennyfer out 2 weeks post-op, either SNF or office
If jennyfer out at SNF outpatient Ortho follow-up in [address] Atwood
Will follow
Assessment
.
Distal Motor Intact: Yes
Dressing:
Clean, dry and intact. Aquacel with strikethrough, contained
Assessment:
POD#2 Left hip gamma
Overall doing/feeling well
Calf soft, nontender
Plan
.
Surgery / Date: Left hip Gamma/February 24
DVT Prophylaxis: Lovenox (Will D/c home on ASA)
Activity:
Out of bed. WBAT LLE on walker/assistance
PT/OT
Discharge Plan: SNF (Appreciate CM- ?[facility]?)
Subjective
.
.:
Patient resting comfortably in bed time AM. Minimal pain left hip
Vital Signs and Labs
.
Vital Signs and Labs:
Lab Results
02/21/25 04:21
02/21/25 04:21
Temp Pulse Resp BP Pulse Ox
98.1 F 70 18 122/77 95
02/21/25 07:00 02/21/25 07:00 02/21/25 07:00 02/21/25 07:00 02/21/25 07:00
PT 13.1 Sec (11.4-14.6) 02/19/25 02:17
INR 0.96 02/19/25 02:17
[2025-02-21] MEDS: NOVOLOG FLEXPEN-LOW RESISTANCE 2 UNITS SC ×2 (07:53→16:58)
[2025-02-21] MEDS: PROSCAR 5 MG PO (07:54)
[2025-02-21] MEDS: COREG 6.25 MG PO (07:54)
[2025-02-21] MEDS: FEOSOL 325 MG PO (07:55)
[2025-02-21] MEDS: SENOKOT 17.2 MG PO (07:55)
[2025-02-21] MEDS: COLACE 100 MG PO (07:55)
[2025-02-21] MEDS: LOVENOX 30 MG SC ×2 (07:55→20:16)
[2025-02-21] MEDS: MIRALAX 17 GRAMS PO (07:55)
--- NOTE | 2025-02-21 08:40 | W.PN.HOSP.TC ---
Today's Communication/Plan
-
await HGB in AM
milk and molasses enema today
Assessment / Plan
Assessment / Plan
pt is an 79 year old male
mechanical fall with sustained Intertrochanteric fracture left femur --apprec ortho--s/p repair with nail fixation--PT/OT/pain control--bowel regimen--for SNF Saturday, would keep until tomorrow and make sure HGB stable
anemia--likely from blood loss from long bone fracture and IVF dilution with blood draws (11.8 to 8/7) on anemia of chronic disease--check HGB in AM--if stable, likely SNF Saturday
constipation--adding milk and molasses enema--cont bowel regimen
Altered mental status--seems appropriate to me--hold off on head CT--TSH 0.13, B12 WNL--Covid neg
Episode of coughing--speech to follow up--reg/thins
LAURIE--likely due to prerenal dehydration--resolved--restarted lisinopril
DM2--Continue SSI--restarted metformin
Essential Hypertension--restarted lisinopril
CAD--Continue statin
DVT proph
code status--FULL CODE
Anticipated Discharge: Within 24 hours
Subjective/Interval History
-
Date of Service: February 21, 2025
pt did not have BM
Objective Data
-
Labs:
Laboratory Results
02/21/25
04:21
WBC 6.6
Hgb 8.7 L
Hct 25.4 L
Plt Count 127 L
Sodium 135
Potassium 4.1
Chloride 105
Carbon Dioxide 26
BUN 40 H
Creatinine 1.1
Glucose 233 H
Calcium 8.3 L
Vital Signs:
max temp for 24 hours
02/20/25
15:25
Temp 99.0 F
Vital Signs
Temp Pulse Resp BP Pulse Ox
98.1 F 70 18 122/77 95
02/21/25 07:00 02/21/25 07:54 02/21/25 07:00 02/21/25 07:54 02/21/25 07:00
I&O
02/20/25 02/21/25 02/22/25
06:59 06:59 06:59
Intake Total 200 / 200 980 / 980
Output Total 1400 / 1400 500 / 500
Balance -1200 / -1200 480 / 480
Review of Systems
-
All other systems: Reviewed and negative
Abdomen/GI: Reports Constipated
Physical Exam
-
General: Well Developed, Well Nourished and No Apparent Distress
HEENT: Normocephalic and Atraumatic
Respiratory: Clear to Auscultation; Negative Wheezes or Rhonchi
Cardiac: Regular Rhythm and S1/S2; Negative Murmur
GI: Soft, Nontender, Nondistended and Normal Bowel Sounds
Musculoskeletal: No Clubbing, No Cyanosis and No Edema
Neuro: Awake and Alert
[2025-02-21] MEDS: MILK OF MAGNESIA 30 ML PO (10:16)
[2025-02-21 11:53] LABS: Glucose - Point of Care 327 mg/dl (70-99)
[2025-02-21] MEDS: NOVOLOG FLEXPEN-LOW RESISTANCE 4 UNITS SC (11:55)
[2025-02-21] MEDS: ROXICODONE 10 MG PO (12:31)
[2025-02-21 13:48] VITALS: BP 118/70; PULSE 72; PULSE 73; O2SAT 93; O2SAT 94
[2025-02-21 15:00] VITALS: BP 103/63
[2025-02-21 16:56] LABS: Glucose - Point of Care 225 mg/dl (70-99)
[2025-02-21] MEDS: GLUCOTROL 5 MG PO (16:59)
[2025-02-21] MEDS: COLACE PO ×2 (20:16→20:24)
[2025-02-21] MEDS: COREG PO (20:19)
[2025-02-21] MEDS: SENOKOT PO (20:19)
[2025-02-21 22:04] LABS: Glucose - Point of Care 222 mg/dl (70-99)
[2025-02-21] MEDS: FLOMAX 0.4 MG PO (22:47)
[2025-02-21] MEDS: LIPITOR 20 MG PO (22:48)
[2025-02-21 23:10] VITALS: BP 104/68
[2025-02-22 06:18] LABS: Hematocrit 24.4 % (39.0-52.0); Hemoglobin 8.2 g/dL (13.0-18.0); Mean Corp Hgb Conc. 33.6 g/dL (33.0-37.0); Mean Corpuscular Hgb 35.7 pg (27.0-31.0); Mean Corpuscular Volume 106.1 fL (80.0-94.0); Mean Platelet Volume 10.2 fL (7.4-10.4); Platelet Count 138 10^3/uL (130-400); Red Cell Dist. Width 13.4 % (11.5-14.5); White Blood Cell Count 6.1 10^3/uL (4.8-10.8)
[2025-02-22 06:42] LABS: Blood Urea Nitrogen 39 mg/dl (9-20); Calcium 8.4 mg/dl (8.4-10.2); Carbon Dioxide 27 mmol/L (22-30); Chloride 105 mmol/L (98-107); Estimated Creatinine Clearance 68 ml/min; Glucose 172 mg/dl (70-99); Magnesium 2.1 mg/dl (1.6-2.3); Potassium 4.2 mmol/L (3.5-5.1); Sodium 136 mmol/L (135-145); eGFR > 60.00
[2025-02-22 07:15] VITALS: BP 124/67
[2025-02-22] MEDS: COREG 6.25 MG PO (07:34)
[2025-02-22] MEDS: FEOSOL 325 MG PO (07:34)
[2025-02-22] MEDS: PROSCAR 5 MG PO (07:34)
[2025-02-22] MEDS: GLUCOTROL 5 MG PO (07:34)
[2025-02-22] MEDS: SENOKOT PO (07:35)
[2025-02-22] MEDS: NOVOLOG FLEXPEN-LOW RESISTANCE 1 UNITS SC (07:35)
[2025-02-22] MEDS: LOVENOX 30 MG SC (07:35)
[2025-02-22] MEDS: MIRALAX PO (07:35)
[2025-02-22] MEDS: LIDOCAINE 4% PATCH TOPICAL ×2 (07:35→07:49)
[2025-02-22] MEDS: COLACE PO (07:35)
[2025-02-22] MEDS: ROXICODONE 10 MG PO (08:42)
--- NOTE | 2025-02-22 08:46 | PTCARENOTE ---
pt aaox3. [place]. states pain in left hip/knee. pain med given as ordered. left hip dressing intact with old drainage. pt states he has had a large loose bm last night and refused any stool softeners.
--- NOTE | 2025-02-22 09:30 | W.PN.HOSP.TC ---
Addendum entered and electronically signed by Chris Oneill MD 02/26/25 16:48:
Acute toxic encephalopathy -from pain meds possibly
Original Note:
Today's Communication/Plan
-
Discharge to [facility]
Assessment / Plan
Assessment / Plan
79-year-old with history of known insulin-dependent diabetes, hypertension, CAD status post stenting over 10 years ago who presents to the emergency department following a mechanical fall at home.
PLAN:
#Intertrochanteric fracture left femur, status post CMN�gamma nail fixation
POD #3
Continue WBAT LLE on walker
PT/OT
Incision site dressing as needed
Lovenox for DVT ppx, transition to aspirin at discharge
Pain control, ice/elevate
#Anemia
Megaloblastic anemia, acute blood loss versus anemia of chronic disease
Stable at 8.2
Monitor CBC
#Constipation
Patient had a bowel movement yesterday
Continue bowel regimen as needed
#DM type II
Continue SSI
Started on glipizide
Patient reports that he discontinued metformin 1 and half year ago (metformin causes diarrhea)
#LAURIE
Resolved
Lisinopril restarted
Monitor BMP
#Hypertension
Lisinopril restarted
#CAD
Continue statin
#BPH
Continue finasteride
Continue tamsulosin
Diet�carb controlled
DVT prophylaxis�Lovenox
Full code
Anticipated Discharge: Today
Subjective/Interval History
-
Date of Service: February 22, 2025
Patient reports having pain at the operated site.
Objective Data
-
Labs:
Laboratory Results
02/22/25
05:34
WBC 6.1
Hgb 8.2 L
Hct 24.4 L
Plt Count 138
Sodium 136
Potassium 4.2
Chloride 105
Carbon Dioxide 27
BUN 39 H
Creatinine 0.9
Glucose 172 H
Calcium 8.4
Vital Signs:
Vital Signs
Temp Pulse Resp BP Pulse Ox
98.0 F 77 18 124/67 95
02/22/25 07:15 02/22/25 07:34 02/22/25 07:15 02/22/25 07:34 02/22/25 07:15
I&O
02/21/25 02/22/25 02/23/25
06:59 06:59 06:59
Intake Total 980 / 980 480 / 480 480 / 480
Output Total 500 / 500 500 / 500
Balance 480 / 480 -20 / -20 480 / 480
Review of Systems
-
All other systems: Reviewed and negative (Except as mentioned above)
Physical Exam
-
General: Well Developed, Well Nourished and No Apparent Distress
HEENT: Normocephalic and Atraumatic
Respiratory: Clear to Auscultation
Cardiac: Regular Rhythm and S1/S2
GI: Soft, Nontender, Nondistended and Normal Bowel Sounds
Musculoskeletal: Other (Left lower extremity, incision site with intact jennyfer, C/D/I)
Skin: Warm and Dry
Neuro: Awake, Alert, Oriented and AO x 3
Psych: Calm
[2025-02-22 09:55] VITALS: BP 118/73; PULSE 80
[2025-02-22] MEDS: MORPHINE SULFATE 1 MG IV (10:10)
--- NOTE | 2025-02-22 10:33 | CM ---
Addendum entered by Jolie Grover 02/22/25 12:54:
Auth from [facility] approved #[id number] approved for 5 days 02/22-02/26 utilization review [phone]. CM will complete transportation forms. Per Adrienne at [facility] they are in network for patient insurance and not out of network for [facility]. Patient
also [employer]. CM little continue to follow for discharge planning needs.
Plan; please call report to [phone]/fax [phone]
Original Note:
Patient seen at bedside with therapy present on . Patient stated that he wanted to go to [facility]. CM confirmed need for auth and tt to [facility] they do have bed available at this time. CM awaiting physician confirmation of discharge and will call to
obtain auth. CM will continue to follow for discharge planning needs.
Plan;PR pending auth and physician confirmation
[2025-02-22 11:07] VITALS: BP 106/63; BP 117/73; PULSE 80
--- NOTE | 2025-02-22 11:43 | PN.CDI ---
CDI
- -
CDI:
Physician Documentation Request
Admit Date: 02/19/25 04:25
Dear Doctor Nino,
Please review the following and provide your response in the progress notes.
Clinical Indicators:
Pt admitted for Intertrochanteric fracture left femur
02/19 Progress Note: ' #Altered mental status
Patient's mentioned that he is not at baseline
During my evaluation patient is AAO X3
Patient had a mechanical fall, but does not report any head strike'
' Acute encephalopathy -reported episodes of confusion per spouse. CT head ordered although patient declined,...Hold narcotic medication as possible.'
Admitted with LAURIE, 02/19 creatinine 1.4
Pt received Morphine and Roxicodone on 02/19
Please specify the known or suspected type of the documented encephalopathy.
Metabolic
Toxic
Other
Use of terms such as suspected, likely, concern for, or probable (associated with a specific diagnosis that is being evaluated, monitored, or treated as if it exists) are acceptable and can be coded in the inpatient setting, when documented at the
time of discharge.
Thank you,
Blanca Mcintosh RN, BSN
CDI Specialist
[place] [employer]
Please use your independent medical judgment in providing your response.
--- NOTE | 2025-02-22 12:01 | W.DCSUMMARY ---
Documented by User: Laith Melvin MD, Resident 02/22/25 15:59
Discharge Summary
Discharge Data
Date of Admission: 02/19/25
Date of Discharge: 02/22/25
-
Pending Results: Yes
Additional Pending Results:
Folate levels
Hospital Course
Discharging Physician : Dr. Mitchell, Dr. Ozuna
Disposition : SNF
Primary care physician : No Hardy
Principal Discharge diagnosis : Intertrochanteric fracture left femur, intramedullary gamma nail fixation.
Hospital Course : 79-year-old male with past medical history of CAD s/p stent, hypertension, hyperlipidemia, BPH, NIDDM presents to the ER after a mechanical fall. Patient denied head strike, was not on blood thinners/aspirin/NSAIDs. At
presentation in the ER patient was afebrile, BP�150/80, HR�78. CBC unremarkable. BUN/creatinine elevated at 45, 1.4 respectively, glucose�223. Normal LFTs. X-ray of the hip showed minimally displaced left intertrochanteric femur fracture.
Orthopedic surgery consulted. Planned on CPM nail fixation.
Patient was started on IV fluids, lisinopril was held until LAURIE resolved. Patient also reports that he has not been eating/drinking well in the past 3 days prior to admission, dehydration might have contributed to his LAURIE. Bladder scan�no
evidence of urinary retention. BMP monitored every day.
Patient underwent intramedullary gamma nail fixation on 02/19/2025. No intraoperative/postoperative complications. Patient's pain adequately controlled. PT/OT recommend SNF. For DVT prophylaxis, during the hospitalization, patient is on Lovenox
and eventually transitioned to aspirin 325 mg daily at discharge for a total course of 4 weeks. Recommend weightbearing as tolerated, harvinder to be removed in 2 weeks.
Patient had macrocytic anemia, Hb 11.8 at admission, trended down to 8.2, and stabilized. B12 WNL, folate pending. Recommend checking CBC in 3 days at SNF.
Lisinopril restarted after resolution of LAURIE. Patient was continued on statin for CAD, carvedilol for essential hypertension, finasteride and tamsulosin for BPH, started on glipizide 5 mg twice daily for DM.
Patient has clinically improved, hemodynamically stable to be discharged to SNF.
Important imaging findings :
X-ray hip�02/19/2025� There is a minimally displaced left intertrochanteric femoral fracture. Mild degenerative changes of the hips, more pronounced on the right. Changes of likely prior bilateral vasectomy.
X-ray hip 02/19/2025�ORIF of an acute intertrochanteric fracture of the left proximal femur with a short stem gamma nail.
Discharge Plan
-
Patient Disposition: Senior Care/SNF
Discharge Diagnosis/Procedures: Mechanical fall with sustained intertrochanteric fracture of the left femur status post nail fixation, acute anemia on anemia of chronic disease, constipation, altered mental status, acute kidney injury, type 2
diabetes mellitus, essential hypertension, coronary artery disease
Condition: Good
Diet: Diabetic, Carb Controlled
Activity: As tolerated
Driving Restrictions: No driving
Bathing Restrictions: None
Blood Work: BMP and CBC 3-5 days after discharge from hospital
Folate pending
Referrals:
No Hardy DO [Family Provider, Family Practice] - in less than 1 week
Rafa Atwood MD [Active, Orthopedics] - in two to four weeks
Additional Discharge Medication Instructions: Aspirin 325 mg, once daily for 4 weeks through 03/19/2025
Harvinder at the incision site to be removed in 2 weeks either at [facility] or Dr. Atwood's office
WBAT on walker
CBC in 3 days
Prescriptions:
New
ferrous sulfate [FeroSul] 325 mg (65 mg iron) Tablet
325 mg PO DAILY 30 Days Qty: 30 0RF
finasteride 5 mg Tablet
5 mg PO DAILY 30 Days Qty: 30 0RF
lidocaine 4 % Adhesive Patch,Medicated
1 patch topical DAILY 7 Days Qty: 10 0RF
glipizide 5 mg Tablet
5 mg PO BID@0800,1700 30 Days Qty: 60 0RF
oxycodone 5 mg Tablet
5 mg PO Q4HPRN PRN (Reason: mild pain) 5 Days Qty: 30 0RF
oxycodone 15 mg tablet
15 mg PO Q6H PRN (Reason: moderate-severe pain) 5 Days Qty: 20 0RF
alum-mag hydroxide-simeth [Mag-Al Plus] 200-200-20 mg/5 mL Suspension
30 ml PO Q4HPRN PRN (Reason: indigestion) 15 Days Qty: 1000 0RF
acetaminophen 325 mg Tablet
650 mg PO Q4HPRN PRN (Reason: headache, temp >101F) Qty: 60 0RF
polyethylene glycol 3350 17 gram powder in packet
17 g PO PRN PRN (Reason: Constipation) 15 Days Qty: 14 0RF
aspirin 325 mg tablet
325 mg PO DAILY 28 Days Qty: 28 0RF
Continued
lisinopril 20 MG tablet
20 mg PO HS
carvedilol 6.25 MG tablet
6.25 mg PO BID Qty: 60 11RF
simvastatin 40 mg Tablet
40 mg PO HS
tamsulosin [Flomax] 0.4 mg capsule
0.4 mg PO HS Qty: 7 0RF
Discontinued
metformin 1,000 MG tablet
1,000 mg PO BID Qty: 30 0RF
Patient Comments:
pt says he stopped taking 1 1/2 years ago
Rx Instructions:
Resume regular dose of Metfomin on 01/11/13
Discharge Orders:
Discharge Patient (As Directed); Ordered 02/22/25
Ordered By: Laith Melvin
Discharge Date and Time
Discharge Date/Time: 02/22/25 14:45
Print Language: YAKUT

Documented by User: Sandeep Mitchell DO 02/22/25 18:17
Discharge Summary
Discharge Data
Date of Admission: 02/19/25
Date of Discharge: 02/22/25
Total time spent discharging patient (in min): 35
Hospital Course
Discharging Physician : Dr. Mitchell, Dr. Ozuna
Disposition : SNF
Primary care physician : No Hardy
Principal Discharge diagnosis : Intertrochanteric fracture left femur, s/p intramedullary gamma nail fixation.
Hospital Course : 79-year-old male with past medical history of CAD s/p stent, hypertension, hyperlipidemia, BPH, NIDDM presents to the ER after a mechanical fall. Patient denied head strike, was not on blood thinners/aspirin/NSAIDs. At
presentation in the ER patient was afebrile, BP�150/80, HR�78. CBC unremarkable. BUN/creatinine elevated at 45, 1.4 respectively, glucose�223. Normal LFTs. X-ray of the hip showed minimally displaced left intertrochanteric femur fracture.
Orthopedic surgery consulted. Planned on CPM nail fixation.
Patient was started on IV fluids, lisinopril was held until LAURIE resolved. Patient also reports that he has not been eating/drinking well in the past 3 days prior to admission, dehydration might have contributed to his LAURIE. Bladder scan�no
evidence of urinary retention. BMP monitored every day.
Patient underwent intramedullary gamma nail fixation on 02/19/2025. No intraoperative/postoperative complications. Patient's pain adequately controlled. PT/OT recommend SNF. For DVT prophylaxis, during the hospitalization, patient is on Lovenox
and eventually transitioned to aspirin 325 mg daily at discharge for a total course of 4 weeks. Recommend weightbearing as tolerated, harvinder to be removed in 2 weeks.
Patient had macrocytic anemia, Hb 11.8 at admission, trended down to 8.2, and stabilized. B12 WNL, folate pending. Recommend checking CBC in 3 days at SNF.
Lisinopril restarted after resolution of LAURIE. Patient was continued on statin for CAD, carvedilol for essential hypertension, finasteride and tamsulosin for BPH, started on glipizide 5 mg twice daily for DM.
Patient has clinically improved, hemodynamically stable to be discharged to SNF.
Important imaging findings :
X-ray hip�02/19/2025� There is a minimally displaced left intertrochanteric femoral fracture. Mild degenerative changes of the hips, more pronounced on the right. Changes of likely prior bilateral vasectomy.
X-ray hip 02/19/2025�ORIF of an acute intertrochanteric fracture of the left proximal femur with a short stem gamma nail.
Discharge Plan
-
Patient Disposition: Senior Care/SNF
Discharge Diagnosis/Procedures: Mechanical fall with sustained intertrochanteric fracture of the left femur status post nail fixation, acute anemia on anemia of chronic disease, constipation, altered mental status, acute kidney injury, type 2
diabetes mellitus, essential hypertension, coronary artery disease
Condition: Good
Diet: Diabetic, Carb Controlled
Activity: As tolerated
Driving Restrictions: No driving
Bathing Restrictions: None
Blood Work: BMP and CBC 3-5 days after discharge from hospital
Folate pending
Referrals:
No Hardy DO [Family Provider, Family Practice] - in less than 1 week
Rafa Atwood MD [Active, Orthopedics] - in two to four weeks
Additional Discharge Medication Instructions: Aspirin 325 mg, once daily for 4 weeks through 03/19/2025
Harvinder at the incision site to be removed in 2 weeks either at [facility] or Dr. Atwood's office
WBAT on walker
CBC in 3 days
Prescriptions:
New
ferrous sulfate [FeroSul] 325 mg (65 mg iron) Tablet
325 mg PO DAILY 30 Days Qty: 30 0RF
finasteride 5 mg Tablet
5 mg PO DAILY 30 Days Qty: 30 0RF
lidocaine 4 % Adhesive Patch,Medicated
1 patch topical DAILY 7 Days Qty: 10 0RF
glipizide 5 mg Tablet
5 mg PO BID@0800,1700 30 Days Qty: 60 0RF
oxycodone 5 mg Tablet
5 mg PO Q4HPRN PRN (Reason: mild pain) 5 Days Qty: 30 0RF
oxycodone 15 mg tablet
15 mg PO Q6H PRN (Reason: moderate-severe pain) 5 Days Qty: 20 0RF
alum-mag hydroxide-simeth [Mag-Al Plus] 200-200-20 mg/5 mL Suspension
30 ml PO Q4HPRN PRN (Reason: indigestion) 15 Days Qty: 1000 0RF
acetaminophen 325 mg Tablet
650 mg PO Q4HPRN PRN (Reason: headache, temp >101F) Qty: 60 0RF
polyethylene glycol 3350 17 gram powder in packet
17 g PO PRN PRN (Reason: Constipation) 15 Days Qty: 14 0RF
aspirin 325 mg tablet
325 mg PO DAILY 28 Days Qty: 28 0RF
Continued
lisinopril 20 MG tablet
20 mg PO HS
carvedilol 6.25 MG tablet
6.25 mg PO BID Qty: 60 11RF
simvastatin 40 mg Tablet
40 mg PO HS
tamsulosin [Flomax] 0.4 mg capsule
0.4 mg PO HS Qty: 7 0RF
Discontinued
metformin 1,000 MG tablet
1,000 mg PO BID Qty: 30 0RF
Patient Comments:
pt says he stopped taking 1 1/2 years ago
Rx Instructions:
Resume regular dose of Metfomin on 01/11/13
Discharge Orders:
Discharge Patient (As Directed); Ordered 02/22/25
Ordered By: Laith Melvin
Discharge Date and Time
Discharge Date/Time: 02/22/25 14:45
Print Language: YAKUT
[2025-02-22 12:17] LABS: Glucose - Point of Care 257 mg/dl (70-99)
[2025-02-22] MEDS: NOVOLOG FLEXPEN-LOW RESISTANCE 3 UNITS SC (12:20)
[2025-02-22 13:44] LABS: Folate 4.9 ng/ml (2.76-20)
[2025-02-22 14:35] VITALS: BP 121/71
== END 2025-02-22 14:45 | DRG 480 ==
LOC: 2 SOUTH 04:25
PROVIDERS: Hospitalist; Internal Medicine; Student in an Organized Health Care Education/Training Program; ADMITTING PHYSICIAN Internal Medicine; ATTENDING PHYSICIAN Internal Medicine; CONSULT PHYSICIAN Student in an Organized Health Care Education/Training Program; EMERGENCY PHYSICIAN Student in an Organized Health Care Education/Training Program; FAMILY PHYSICIAN Family Medicine
PROC: 0QS706Z Reposition Left Upper Femur with Intramedullary Internal Fixation Device, Open Approach (ICD-10-PCS; 2025-02-19)
DX: S72.142A Displaced intertrochanteric fracture of left femur, initial encounter for closed fracture (principal); G92.8 Other toxic encephalopathy; D62 Acute posthemorrhagic anemia; G93.40 Encephalopathy, unspecified; N17.9 Acute kidney failure, unspecified; F17.200 Nicotine dependence, unspecified, uncomplicated; E11.9 Type 2 diabetes mellitus without complications; E78.00 Pure hypercholesterolemia, unspecified; I10 Essential (primary) hypertension; I25.10 Atherosclerotic heart disease of native coronary artery without angina pectoris; N40.1 Benign prostatic hyperplasia with lower urinary tract symptoms; R33.9 Retention of urine, unspecified; E86.0 Dehydration; R05.9 Cough, unspecified; K59.00 Constipation, unspecified; D63.8 Anemia in other chronic diseases classified elsewhere; W01.0XXA Fall on same level from slipping, tripping and stumbling without subsequent striking against object, initial encounter; Y93.01 Activity, walking, marching and hiking; Y92.018 Other place in single-family (private) house as the place of occurrence of the external cause; Z85.3 Personal history of malignant neoplasm of breast; I25.2 Old myocardial infarction; Z95.5 Presence of coronary angioplasty implant and graft; Z90.49 Acquired absence of other specified parts of digestive tract; Z90.11 Acquired absence of right breast and nipple; Z88.8 Allergy status to other drugs, medicaments and biological substances; Z79.84 Long term (current) use of oral hypoglycemic drugs; Z11.52 Encounter for screening for COVID-19; T50.995A Adverse effect of other drugs, medicaments and biological substances, initial encounter
CPT/HCPCS: 73502; 76000; 80048; 80053; 81003; 81015; 82607; 82746; 82962; 83735; 84443; 85025; 85027; 85610; 85730; 87811; 92610; 96374; 96375; 97110; 97163; 97167; 97530; 99285; 99406

== ENCOUNTER → 2025-02-25 10:19 | Outpatient (REF) | payer OTHER, SELFPAY ==
[2025-02-25 10:44] LABS: % Basophils 0.5 % (0-2); % Eosinophils 5.4 % (0-6); % Immature Granulocytes 0.3 % (0-0.5); % Lymphocytes 8.6 % (20.5-51.1); % Monocytes 7.6 % (1.7-9.3); % Neutrophils 77.6 % (42.2-75.2); Absolute Eosinophils 0.4 10^3/uL (0-0.7); Absolute Lymphocytes 0.6 10^3/uL (1.2-3.4); Absolute Monocytes 0.6 10^3/uL (0.1-0.6); Absolute Neutrophils 5.8 10^3/uL (1.4-6.5); Hematocrit 26.9 % (39.0-52.0); Mean Corp Hgb Conc. 33.5 g/dL (33.0-37.0); Mean Corpuscular Volume 107.6 fL (80.0-94.0); Mean Platelet Volume 10.5 fL (7.4-10.4); Nucleated Red Blood Cells % 0 % (-); Platelet Count 195 10^3/uL (130-400); Red Cell Dist. Width 13.7 % (11.5-14.5); White Blood Cell Count 7.5 10^3/uL (4.8-10.8)
[2025-02-25 11:15] LABS: Blood Urea Nitrogen 33 mg/dl (9-20); Calcium 8.6 mg/dl (8.4-10.2); Carbon Dioxide 26 mmol/L (22-30); Chloride 105 mmol/L (98-107); Glucose 186 mg/dl (70-99); Potassium 4.5 mmol/L (3.5-5.1); Sodium 137 mmol/L (135-145); eGFR > 60.00
== END ==
LOC: OLABP 10:19
PROVIDERS: ATTENDING PHYSICIAN Family Medicine
DX: S72.142D Displaced intertrochanteric fracture of left femur, subsequent encounter for closed fracture with routine healing (principal); G93.40 Encephalopathy, unspecified; D64.0 Hereditary sideroblastic anemia; N17.1 Acute kidney failure with acute cortical necrosis; I10 Essential (primary) hypertension; I25.10 Atherosclerotic heart disease of native coronary artery without angina pectoris; E11.9 Type 2 diabetes mellitus without complications
CPT/HCPCS: 36415; 80048; 85025

== ENCOUNTER → 2025-03-03 11:04 | Outpatient (REF) | payer OTHER, SELFPAY ==
[2025-03-03 11:37] LABS: Hematocrit 27.4 % (39.0-52.0); Hemoglobin 9.0 g/dL (13.0-18.0); Mean Corp Hgb Conc. 32.8 g/dL (33.0-37.0); Mean Corpuscular Volume 106.2 fL (80.0-94.0); Platelet Count 298 10^3/uL (130-400); Red Cell Dist. Width 13.8 % (11.5-14.5)
[2025-03-03 12:11] LABS: Blood Urea Nitrogen 30 mg/dl (9-20); Calcium 8.6 mg/dl (8.4-10.2); Carbon Dioxide 20 mmol/L (22-30); Chloride 107 mmol/L (98-107); Glucose 206 mg/dl (70-99); Potassium 4.5 mmol/L (3.5-5.1); Sodium 134 mmol/L (135-145); eGFR > 60.00
== END ==
LOC: OLABP 11:04
PROVIDERS: ATTENDING PHYSICIAN Family Medicine
DX: S72.412D Displaced unspecified condyle fracture of lower end of left femur, subsequent encounter for closed fracture with routine healing (principal); G93.40 Encephalopathy, unspecified; D64.0 Hereditary sideroblastic anemia; N17.1 Acute kidney failure with acute cortical necrosis; W19.XXXA Unspecified fall, initial encounter; I10 Essential (primary) hypertension; I25.10 Atherosclerotic heart disease of native coronary artery without angina pectoris; E11.9 Type 2 diabetes mellitus without complications
CPT/HCPCS: 36415; 80048; 85027

== ENCOUNTER → 2025-03-10 11:35 | Outpatient (REF) | payer OTHER, SELFPAY ==
[2025-03-10 12:51] LABS: Hematocrit 28.7 % (39.0-52.0); Hemoglobin 9.3 g/dL (13.0-18.0); Mean Corp Hgb Conc. 32.4 g/dL (33.0-37.0); Mean Corpuscular Volume 106.3 fL (80.0-94.0); Nucleated Red Blood Cells % 0 % (-); Platelet Count 253 10^3/uL (130-400); Red Cell Dist. Width 13.8 % (11.5-14.5)
[2025-03-10 13:00] LABS: Blood Urea Nitrogen 28 mg/dl (9-20); Calcium 8.8 mg/dl (8.4-10.2); Carbon Dioxide 22 mmol/L (22-30); Chloride 105 mmol/L (98-107); Glucose 177 mg/dl (70-99); Potassium 4.5 mmol/L (3.5-5.1); Sodium 136 mmol/L (135-145); eGFR > 60.00
== END ==
LOC: OLABP 11:35
PROVIDERS: ATTENDING PHYSICIAN Family Medicine
DX: G93.40 Encephalopathy, unspecified (principal); D64.0 Hereditary sideroblastic anemia; N17.1 Acute kidney failure with acute cortical necrosis; I10 Essential (primary) hypertension; I25.10 Atherosclerotic heart disease of native coronary artery without angina pectoris; E11.9 Type 2 diabetes mellitus without complications
CPT/HCPCS: 36415; 80048; 85025

== ENCOUNTER → 2025-03-15 09:28 | Outpatient (REF) | payer OTHER, SELFPAY ==
[2025-03-15 10:13] LABS: Hematocrit 28.4 % (39.0-52.0); Hemoglobin 9.4 g/dL (13.0-18.0); Mean Corp Hgb Conc. 33.1 g/dL (33.0-37.0); Mean Corpuscular Volume 102.5 fL (80.0-94.0); Nucleated Red Blood Cells % 0 % (-); Platelet Count 202 10^3/uL (130-400); Red Cell Dist. Width 13.1 % (11.5-14.5)
[2025-03-15 10:36] LABS: Blood Urea Nitrogen 28 mg/dl (9-20); Calcium 8.8 mg/dl (8.4-10.2); Carbon Dioxide 27 mmol/L (22-30); Chloride 103 mmol/L (98-107); Glucose 194 mg/dl (70-99); Potassium 4.6 mmol/L (3.5-5.1); Sodium 137 mmol/L (135-145); eGFR > 60.00
== END ==
LOC: OLABP 09:28
PROVIDERS: ATTENDING PHYSICIAN Family Medicine
DX: S72.142D Displaced intertrochanteric fracture of left femur, subsequent encounter for closed fracture with routine healing (principal); G93.40 Encephalopathy, unspecified; N17.1 Acute kidney failure with acute cortical necrosis; I10 Essential (primary) hypertension; I25.10 Atherosclerotic heart disease of native coronary artery without angina pectoris; E11.9 Type 2 diabetes mellitus without complications
CPT/HCPCS: 36415; 80048; 85025

== ENCOUNTER → 2025-03-29 13:17 | Outpatient (REF) | payer OTHER, SELFPAY | LOC: HWRAD 13:17 | PROVIDERS: ATTENDING PHYSICIAN Nurse Practitioner Family | DX: R05.1 Acute cough (principal); R09.89 Other specified symptoms and signs involving the circulatory and respiratory systems | CPT/HCPCS: 71046 ==

== ENCOUNTER → 2025-04-08 14:40 | Outpatient (REF) | payer OTHER, SELFPAY ==
--- NOTE | 2025-04-08 16:26 | CARDSERVDEF ---
Echocardiogram with Definity completed after protocol screening completed. Allergies verified.
Patent IV site: _Left forearm 22 G PC inserted by IV team____
IV site flushed with 0.9% NaCl pre and post administration.
Diluted bolus method utilized to enhance visualization of ventricular kim.
Total volume given: __2__ mL
Patient tolerated all procedures well without complications.
Heplock D/C ed at 1623, site clear, no redness, no edema. Pressure held, no bleeding, 2x2 applied and taped. Pt offers no complaints.
== END ==
LOC: RCS 14:40
PROVIDERS: ATTENDING PHYSICIAN Nurse Practitioner Family; REFERRING PHYSICIAN Internal Medicine Cardiovascular Disease
DX: R60.0 Localized edema (principal); R05.1 Acute cough; R79.89 Other specified abnormal findings of blood chemistry
CPT/HCPCS: 93306

== ENCOUNTER → 2025-06-29 10:14 | Outpatient (REF) | payer OTHER, SELFPAY | LOC: HWRAD 10:14 | PROVIDERS: ATTENDING PHYSICIAN Student in an Organized Health Care Education/Training Program; FAMILY PHYSICIAN Family Medicine | DX: S72.002P Fracture of unspecified part of neck of left femur, subsequent encounter for closed fracture with malunion (principal) | CPT/HCPCS: 73700 ==